=== PATIENT | female | born 1995 | race African-American/Black ===

== ENCOUNTER → 2016-08-08 | Outpatient (CLI) | payer OTHER ==
[~2016-08-08] MED LIST: AMOX875T PO; LEVO25TA5 PO
--- NOTE | 2016-08-08 16:01 | DIAGNOSTIC IMAGING REPORT ---
THYROID ULTRASOUND HISTORY: Thyroid nodule Z80.8 COMPARISON: None. FINDINGS: Right lobe: Maximum dimension 4.7 cm. Several 2 mm or last hypoechoic nodules lower aspect right thyroid. Left lobe: Uniform in appearance with a maximum dimension of 5.0 cm. Isthmus: No nodules. IMPRESSION: Several very tiny low suspicion right thyroid nodules. Otherwise negative study. A 1 year follow-up is suggested. Electronically signed by: Brett Jewell M.D. 08/08/2016 3:59 PM Dictated Date/Time: 08/08/2016 3:58 PM
== END | disposition home or self-care (01) ==
LOC: C.ULTR 15:38
PROVIDERS: ATTEND Family Medicine
DX: E04.1 Nontoxic single thyroid nodule (principal); Z80.8 Family history of malignant neoplasm of other organs or systems

== ENCOUNTER 2016-09-06 19:33 | Emergency (ER) | payer OTHER ==
[~2016-09-06] VITALS: Ht 175.3 cm; Wt 85.7 kg
[2016-09-06 19:42] VITALS: Ht 175.3 cm; Wt 85.7 kg
[2016-09-06 20:10] LABS: BASO % 0.3 %; BASO ABS # 0.02 K/uL (0-0.2); COMPLETE YES; EOS % 5.5 %; HEMATOCRIT 38.5 % (37-47); LYMPH % 43.6 %; LYMPH ABS # 2.56 K/uL (1.2-3.4); MEAN CELL VOLUME 88.5 fL (80-100); MEAN CORPUSCULAR HEMOGLOBIN 29.4 pg (25-34); MEAN CORPUSCULAR HGB CONC 33.2 g/dl (32-36); MEAN PLATELET VOLUME 9.9 fL (7.4-10.4); MONO % 7.7 %; NEUT % 42.9 %; PLATELET COUNT 266 K/uL (130-400); RED BLOOD COUNT 4.35 M/uL (4.2-5.4); WHITE BLOOD COUNT 5.87 K/uL (4.8-10.8)
[2016-09-06] MEDS ORDERED: LEVO25TA5 PO (20:20)
[2016-09-06 20:24] LABS: URINE APPEARANCE CLEAR (CLEAR); URINE BILIRUBIN NEG (NEG); URINE COLOR YELLOW; URINE EPITHELIAL CELL AUTO 20-30 /lpf (0-5); URINE NITRITE NEG (NEG); URINE PH 5.5 (4.5-7.5); UROBILINOGEN NEG (NEG); ZZUR CULT IF INDIC CLEAN CATCH NO
[2016-09-06 20:27] LABS: MANUAL MICROSCOPIC REQUIRED? NO; REVIEW REQ? NO
[2016-09-06 20:29] LABS: ALT/SGPT 16 U/L (12-78); AST/SGOT 12 U/L (15-37); BLOOD UREA NITROGEN 18 mg/dl (7-18); BUN/CREATININE RATIO 19.7 (10-20); CARBON DIOXIDE 25 mmol/L (21-32); CHLORIDE 107 mmol/L (98-107); CREATININE 0.92 mg/dl (0.60-1.20); GLUCOSE 58 mg/dl (70-99); POTASSIUM 3.8 mmol/L (3.5-5.1); SODIUM 141 mmol/L (136-145)
[2016-09-06] MEDS ORDERED: OPTIRAY 320 IV PRN (20:30)
[2016-09-06 20:32] LABS: ALKALINE PHOSPHATASE 47 U/L (45-117)
--- NOTE | 2016-09-06 21:02 | DIAGNOSTIC IMAGING REPORT ---
CT ABD/PELVIS IV CONTRAST ONLY CLINICAL HISTORY: Right lower quadrant abdominal pain COMPARISON STUDY: None. TECHNIQUE: Following the IV administration of 119 mL of Optiray-320, CT scan of the abdomen and pelvis was performed from the lung bases to the proximal femurs. Images are reviewed in the axial, sagittal, and coronal planes. IV contrast was administered without complication. CT DOSE: 522.79 mGy.cm FINDINGS: Lower chest: The heart is normal in size and configuration, without pericardial effusion. The lung bases and pleural spaces are clear. Liver: The contrast-enhanced liver is normal in size, contour, and attenuation. There is no intrahepatic biliary ductal dilatation. The hepatic veins and portal veins are patent. Gallbladder: Unremarkable. Spleen: Normal in size and attenuation. Pancreas: Unremarkable. Adrenal glands: Unremarkable. Kidneys: There is symmetric renal cortical enhancement. The kidneys are normal in size without hydronephrosis. Bowel: There are no transition zones indicate bowel obstruction. There is no evidence of acute diverticulitis. There is mild fecal retention. There is moderate to the stomach. There is borderline appendiceal thickening (7 mm) without evidence of significant periappendiceal inflammatory change. Peritoneum: There is a small area free pelvic fluid. No free air is visualized. Vasculature: The abdominal aorta is normal in course and caliber. Adenopathy: None. Pelvic viscera: The bladder, and pelvic viscera are unremarkable. Skeletal structures: No destructive osseous lesions are seen. IMPRESSION: 1. No evidence of bowel obstruction. No evidence of free air 2. Mild fecal retention 3. Small amount of free pelvic fluid 4. Borderline appendiceal wall thickening ((7 mm) without evidence of significant periappendiceal inflammatory change. The findings could represent a normal variant, or an early acute appendicitis. Clinical correlation and close follow-up will be necessary. Electronically signed by: Trenton Mobley M.D. 09/06/2016 9:01 PM Dictated Date/Time: 09/06/2016 8:53 PM
[2016-09-06] MEDS ORDERED: AMOXICILLIN/CLAVULANATE TAB 875 MG TAB PO ONE (21:45)
[2016-09-06] MEDS ORDERED: AMOX875T PO (21:55)
[2016-09-06 21:57] VITALS: BP 113/59; PULSE 77; TEMP 36.9; O2SAT 100
--- NOTE | 2016-09-07 00:59 | EMERGENCY ROOM VISIT NOTE ---
History Report prepared by [place]: Lamin Waddell Under the Supervision of: Dr. Peter Farrell D.O. First contact with patient: 20:00 Chief Complaint: ABDOMINAL PAIN Stated Complaint: STOMACH PAINS ON MIDDLE/R SIDE,WORSENS AFTER EATIN Nursing Triage Summary: pt reports for last 2 or 3 days abdominal pain RLQ , with nausea worse after eating History of Present Illness The patient is a 21 year old female who presents to the Emergency Room with complaints of constant right lower quadrant abdominal pain beginning a few days ago. She currently rates her discomfort a 7/10 in severity. The patient states that she has had similar symptoms last summer in the [facility], but she thought it was something she ate. She reports that laying on her stomach and eating worsens her discomfort. The patient states that she tried taking Advil, but it did not help her discomfort. She denies vomiting, changing in urinary symptoms, cough, runny nose, shortness of breath, and calf swelling. The patient notes that her LNMP was about three weeks ago and is one week away from her next. She denies any vagina discharge or change in her menstrual cycle. The patient states that she was just diagnosed with hyperthyroidism. Source of History: patient Onset: few days ago Position: abdomen (RLQ) Symptom Intensity: 7/10 Timing: constant Modifying Factors (Worsening): eating, other (laying on it) Associated Symptoms: No cough, No SOB, No vomiting, No urinary symptoms Note: She denies runny nose and calf swelling. Review of Systems See HPI for pertinent positives & negatives. A total of 10 systems reviewed and were otherwise negative. Past Medical & Surgical Medical Problems: (1) Hypothyroidism Family History Diabetes mellitus FH: cancer Hypertension Social History Smoking Status: Never Smoker Alcohol Use: occasionally Housing Status: lives with family Occupation Status: [employer] student Current/Historical Medications Scheduled Amoxicillin & Pot Clavulanate (Augmentin 875-125 mg), 875 MG PO BID Levothyroxine Sodium (Levothyroxine Sodium), Unknown Dose PO DAILYBB Allergies Coded Allergies: No Known Allergies (Verified , 09/06/16) Physical Exam Vital Signs Date Time Temp Pulse Resp B/P (MAP) Pulse Ox O2 Delivery O2 Flow Rate FiO2 09/06/16 21:57 36.9 77 16 113/59 100 09/06/16 21:28 77 16 113/59 100 Room Air 09/06/16 19:42 36.9 88 18 125/79 99 Room Air Physical Exam GENERAL: alert, well appearing, well nourished, no distress, non-toxic, sitting up in bed EYE EXAM: normal conjunctiva OROPHARYNX: no exudate, no erythema, lips, buccal mucosa, and tongue normal and mucous membranes are moist NECK: supple, no nuchal rigidity, no adenopathy, non-tender LUNGS: Clear to auscultation. Normal chest wall mechanics HEART: no murmurs, S1 normal and S2 normal ABDOMEN: abdomen soft, slight tenderness to right lower quadrant, normo-active bowel sounds, no masses, no rebound or guarding. BACK: Back is symmetrical on inspection and there is no deformity, no midline tenderness, no CVA tenderness. SKIN: no rashes and no bruising UPPER EXTREMITIES: upper extremities are grossly normal. LOWER EXTREMITIES: No pitting edema. NEURO EXAM: Normal sensorium, cranial nerves II-XII intact, normal speech, no weakness of arms, no weakness of legs. Medical Decision & Procedures ER Provider Diagnostic Interpretation: CT:Per my review, radiologist interpretation. CT ABD/PELVIS IV CONTRAST ONLY CLINICAL HISTORY: Right lower quadrant abdominal pain COMPARISON STUDY: None. TECHNIQUE: Following the IV administration of 119 mL of Optiray-320, CT scan of the abdomen and pelvis was performed from the lung bases to the proximal femurs. Images are reviewed in the axial, sagittal, and coronal planes. IV contrast was administered without complication. CT DOSE: 522.79 mGy.cm FINDINGS: Lower chest: The heart is normal in size and configuration, without pericardial effusion. The lung bases and pleural spaces are clear. Liver: The contrast-enhanced liver is normal in size, contour, and attenuation. There is no intrahepatic biliary ductal dilatation. The hepatic veins and portal veins are patent. Gallbladder: Unremarkable. Spleen: Normal in size and attenuation. Pancreas: Unremarkable. Adrenal glands: Unremarkable. Kidneys: There is symmetric renal cortical enhancement. The kidneys are normal in size without hydronephrosis. Bowel: There are no transition zones indicate bowel obstruction. There is no evidence of acute diverticulitis. There is mild fecal retention. There is moderate to the stomach. There is borderline appendiceal thickening (7 mm) without evidence of significant periappendiceal inflammatory change. Peritoneum: There is a small area free pelvic fluid. No free air is visualized. Vasculature: The abdominal aorta is normal in course and caliber. Adenopathy: None. Pelvic viscera: The bladder, and pelvic viscera are unremarkable. Skeletal structures: No destructive osseous lesions are seen. IMPRESSION: 1. No evidence of bowel obstruction. No evidence of free air 2. Mild fecal retention 3. Small amount of free pelvic fluid 4. Borderline appendiceal wall thickening ((7 mm) without evidence of significant periappendiceal inflammatory change. The findings could represent a normal variant, or an early acute appendicitis. Clinical correlation and close follow-up will be necessary. Electronically signed by: Trenton Mobley M.D. 09/06/2016 9:01 PM Dictated Date/Time: 09/06/2016 8:53 PM Laboratory Results 09/06/16 19:55 Red Blood Count 4.35, Mean Corpuscular Volume 88.5, Mean Corpuscular Hemoglobin 29.4, Mean Corpuscular Hemoglobin Concent 33.2, Mean Platelet Volume 9.9, Neutrophils (%) (Auto) 42.9, Lymphocytes (%) (Auto) 43.6, Monocytes (%) (Auto) 7.7, Eosinophils (%) (Auto) 5.5, Basophils (%) (Auto) 0.3, Neutrophils # (Auto) 2.52, Lymphocytes # (Auto) 2.56, Monocytes # (Auto) 0.45, Eosinophils # (Auto) 0.32, Basophils # (Auto) 0.02 09/06/16 19:55 Test 09/06/16 19:47 09/06/16 19:55 Urine Color YELLOW Urine Appearance CLEAR (CLEAR) Urine pH 5.5 (4.5-7.5) Urine Specific [place] 1.020 (1.000-1.030) Urine Protein NEG (NEG) Urine Glucose (UA) NEG (NEG) Urine Ketones NEG (NEG) Urine Occult Blood NEG (NEG) Urine Nitrite NEG (NEG) Urine Bilirubin NEG (NEG) Urine Urobilinogen NEG (NEG) Urine Leukocyte Esterase SMALL (NEG) Urine WBC (Auto) 1-5 /hpf (0-5) Urine RBC (Auto) 0-4 /hpf (0-4) Urine Hyaline Casts (Auto) 1-5 /lpf (0-5) Urine Epithelial Cells (Auto) 20-30 /lpf (0-5) Urine Bacteria (Auto) NEG (NEG) Urine Test NEG (NEG) White Blood Count 5.87 K/uL (4.8-10.8) Red Blood Count 4.35 M/uL (4.2-5.4) Hemoglobin 12.8 g/dL (12.0-16.0) Hematocrit 38.5 % (37-47) Mean Corpuscular Volume 88.5 fL (80-100) Mean Corpuscular Hemoglobin 29.4 pg (25-34) Mean Corpuscular Hemoglobin Concent 33.2 g/dl (32-36) Platelet Count 266 K/uL (130-400) Mean Platelet Volume 9.9 fL (7.4-10.4) Neutrophils (%) (Auto) 42.9 % Lymphocytes (%) (Auto) 43.6 % Monocytes (%) (Auto) 7.7 % Eosinophils (%) (Auto) 5.5 % Basophils (%) (Auto) 0.3 % Neutrophils # (Auto) 2.52 K/uL (1.4-6.5) Lymphocytes # (Auto) 2.56 K/uL (1.2-3.4) Monocytes # (Auto) 0.45 K/uL (0.11-0.59) Eosinophils # (Auto) 0.32 K/uL (0-0.5) Basophils # (Auto) 0.02 K/uL (0-0.2) RDW Standard Deviation 40.4 fL (36.4-46.3) RDW Coefficient of Variation 12.5 % (11.5-14.5) Immature Granulocyte % (Auto) 0.0 % Immature Granulocyte # (Auto) 0.00 K/uL (0.00-0.02) Anion Gap 9.0 mmol/L (3-11) Est Creatinine Clear Calc Drug Dose 112.1 ml/min Estimated GFR () 102.4 Estimated GFR (Non- 88.4 BUN/Creatinine Ratio 19.7 (10-20) Calcium Level 9.0 mg/dl (8.5-10.1) Total Bilirubin 0.3 mg/dl (0.2-1) Direct Bilirubin < 0.1 mg/dl (0-0.2) Aspartate Amino Transf (AST/SGOT) 12 U/L (15-37) Alanine Aminotransferase (ALT/SGPT) 16 U/L (12-78) Alkaline Phosphatase 47 U/L (45-117) Total Protein 8.4 gm/dl (6.4-8.2) Albumin 4.4 gm/dl (3.4-5.0) Lipase 162 U/L (73-393) Laboratory results per my review. Medications Administered Medications (Trade) Dose Ordered Sig/Noreen Route Start Time Stop Time Status Last Admin Dose Admin Amoxicillin/ Clavulanate Potassium (Augmentin Tab) 875 mg NOW ONCE PO 09/06/16 21:45 09/06/16 21:46 DC 09/06/16 22:02 875 MG ED Course ED COURSE: Vital signs were reviewed and showed normal signs The patients medical record was reviewed The above diagnostic studies were performed and reviewed. ED treatments and interventions as stated above. 2016: The patient was evaluated in room B12B. A complete history and physical examination was performed. 2124: I spoke with Dr. Torrez, general surgery. He recommends antibiotics and having the patient follow up in the office. 2141: Upon reevaluation, the patient is resting. I discussed my findings with the patient and she understands and agrees with the treatment plan. She denied a pelvic exam. 2144: Ordered Augmentin Tab 875 mg PO. Based on the patients age, coexisting illnesses, exam and lab findings the decision to treat as an outpatient was made. The patient remained stable while under my care. The patient appeared well at the time of discharge. Medical Decision Differential diagnoses includes but is not limited to gastritis, peptic ulcer disease, GERD, gallbladder disease, pancreatitis, small bowel obstruction, acute coronary syndrome, pericarditis, ischemic bowel, irritable bowel disease, irritable bowel syndrome, appendicitis, diverticulitis, malignancy, hernia, urinary tract infection, torsion, /ectopic , perforation, trauma, infectious. Medication Reconciliation: I attest that I have personally reviewed the patient' s current medication list. Patient is a 21-year-old female who presents the ER for 2 days worth of right lower quadrant abdominal pain which is worse after eating. On exam she is no right upper quadrant abdominal pain. CBC along with BMP, LFTs, bilirubin and lipase were normal. There was no leukocytosis. UA was negative. was negative. CT shows a appendix measuring 7 mm with no significant stranding. This was discussed with Dr. Pierre. He recommended antibiotics and having the patient follow-up as she had no significant leukocytosis and a CT did not showed no significant surrounding inflammation. She was tender I do believe that this likely early appendicitis. She was agreeable with outpatient treatment. She'll return tomorrow if she has any worsening of pain, fevers, persistent nausea vomiting. If the pain improves or resolve she'll follow-up on Friday with her PCP and Gen. surgery. She was discharged on Augmentin per general surgery. Vitals are stable and she is afebrile. Discussed with Pt concerning signs and symptoms to watch out for. Pt was instructed to follow up with their PCP and discussed with the patient their option to return to the ED at anytime for persistent or worsening symptoms. The appropriate anticipatory guidance and out-patient management, including indications for return to the emergency department, were explained at length to the patient and understood. Consults Time Called: 2122 Consulting Physician: Dr. Torrez, General Surgery Returned Call: [address] Torrez, general surgery. He recommends antibiotics and having the patient follow up in the office. Impression Primary Impression: Acute appendicitis Scribe Attestation The scribe's documentation has been prepared under my direction and personally reviewed by me in its entirety. I confirm that the note above accurately reflects all work, treatment, procedures, and medical decision making performed by me. Departure Information Dispostion Home / Self-Care Prescriptions Amoxicillin & Pot Clavulanate (Augmentin 875-125 mg) 1 Tab Tab 875 MG PO BID for 10 Days, TAB Prov: Peter Farrell, 09/06/16 Referrals Darrius Woodson III, M.D. (PCP) Mac Torrez M.D. Forms HOME CARE DOCUMENTATION FORM, IMPORTANT VISIT INFORMATION Patient Instructions Appendicitis, My [facility] Additional Instructions CT of her abdomen and pelvis shows an enlarged appendix suggesting acute appendicitis. This was discussed with general surgery and they recommended antibiotics. If you still have pain in 24 hours or any worsening of your pain you need to return immediately to the ER for reevaluation immediately. If your pain resolves please follow up with your primary care doctor on Friday and Gen. surgery early next week. Again any fevers, worsening pain, nausea or vomiting, unable to eat or drink, or any other concerning signs or symptoms please return to the ER immediately. Problem Qualifiers Primary Impression: Acute appendicitis Acute appendicitis type: unspecified acute appendicitis type Qualified Codes : K35.80 - Unspecified acute appendicitis
== END 2016-09-06 22:06 | disposition home or self-care (01) ==
LOC: C.EDB 19:36
DX: K35.80 Unspecified acute appendicitis (principal); E03.9 Hypothyroidism, unspecified; Z79.899 Other long term (current) drug therapy; Z83.3 Family history of diabetes mellitus; Z82.49 Family history of ischemic heart disease and other diseases of the circulatory system

== ENCOUNTER 2017-07-15 21:38 | Emergency (ER) | payer OTHER ==
[~2017-07-15] VITALS: Ht 175.3 cm; Wt 83.5 kg
[~2017-07-15 21:38] MED LIST changes: -AMOX875T PO
[2017-07-15 21:42] VITALS: Ht 175.3 cm; Wt 83.5 kg
[2017-07-15] MEDS ORDERED: ACETAMINOPHEN 500 MG TAB PO STA (22:03)
[2017-07-15 23:06] VITALS: TEMP 36.9
[2017-07-15 23:08] VITALS: BP 113/75; PULSE 86; O2SAT 97
--- NOTE | 2017-07-16 02:14 | EMERGENCY ROOM VISIT NOTE ---
ED Visit Note First contact with patient: 21:48 Chief Complaint: Sore throat. History of Present Illness: Ms. Jovel is a 22-year-old black female who ambulates into the ED complaining of throat pain. Patient reports she has been feeling well over the last few days and noted some mild nasal/sinus congestion yesterday. Patient reports she awoke from sleep at approximately 9 AM this morning and at that time she had a fever of 102.2F, body aches, mild headache, and a scratchy throat. Throughout the day she has been having chills and sweats and a gradual increase in her throat discomfort. Currently she describes her pain as a dull sharp sensation. She rates her discomfort 8/10. Her pain is nonradiating. Her pain worsens with swallowing. She has not identified any alleviating factors related to the pain. Associated with her pain she continues to have fevers, body aches and chills. She reports over the day she has a sensation of throat swelling and has had a nonproductive cough. She also reports that she has a mild headache. She describes this as a global pressure sensation. She rates her discomfort 1/10. She has not identified any aggravating or alleviating factors related to her pain. She has been taking ibuprofen without relief of her discomfort. She denies dizziness, lightheadedness, hearing changes, ear drainage, inability to swallow, painful talking, drooling, voice changes, neck pain/stiffness, shortness of breath, nausea, vomiting. Review of Systems: As noted above in history of present illness. 8 body systems were reviewed and found to be negative as noted above. Past Medical History: Hypothyroidism, status post wisdom teeth extraction and I& D procedure on a unspecified eye stye. Current Medications: Levothyroxine. Allergies to Medications: Patient denies. Social History: Patient is currently employed; she feels safe in her home environment; she denies tobacco use and admits to social alcohol use. Physical Examination: Vital Signs: Date Time Temp Pulse Resp B/P (MAP) Pulse Ox O2 Delivery O2 Flow Rate FiO2 07/15/17 23:08 86 18 113/75 97 07/15/17 23:06 36.9 86 18 113/75 97 Room Air 07/15/17 21:42 38.0 104 20 98 Room Air GENERAL: 22-year-old female in mild to moderate distress due to symptoms, nontoxic-appearing, febrile and hemodynamically stable. NEUROLOGICAL: Awake, alert and oriented to person, place and time. Answering questions appropriately and following commands. Normal gait. Good hand eye coordination. SKIN: Warm, dry and pink. No soft tissue eruptions or trauma noted. HEENT: Atraumatic and normocephalic. No erythema or tenderness over the frontal or maxillary sinuses. External ears are nontender. Auditory canals are pink and patent. Tympanic membranes were not erythematous or edematous. Mild tenderness in the right posterior auricular area without elevation of the lymph node or tenderness or erythema over the mastoid processes. PERRLA. Sclera white and conjunctiva pink without drainage. No drainage from naris with audible congestion. Oral cavity moist and pink. Airway is patent. Uvula is midline and no abscesses were seen. Moderate posterior erythema and mild edema was noted. No tonsillar exudates. Speech normal and clear. Mild bilateral cervical lymphadenopathy. Trachea midline. BACK: No tenderness over the bony spine. No nuchal rigidity or meningismus. Full range of motion of the cervical spine. THORAX: Lungs sounds are clear to auscultation and equal bilaterally with symmetrical chest wall. No wheezing, rales or rhonchi. ED Course: Patient is assessed as noted above. Patient's medication list was reviewed. Rapid Strep Screen: Negative. Culture pending. Patient was given 1 g of acetaminophen by mouth for pain and fever. Patient was educated about today's findings and instructed on her treatment plan ; she verbalized understanding and agreement with this plan. Clinical Impression: Acute pharyngitis. Disposition: Patient discharged home in stable condition; prior to departure she was reassessed and subjectively reported she was feeling better and rated her throat discomfort 1/10. Additionally her temperature was rechecked with a temperature of 36.9C orally and now she was afebrile. Plan: Patient was encouraged alternate ibuprofen and acetaminophen every 3 hours as needed for persistent pain or fevers. Patient was encouraged to stay well-hydrated with increased clear fluids. Patient was encouraged to consider gargling with salt water 5 times a day. Patient was encouraged to follow-up with primary care provider for recheck in 4- 5 days. Patient was encouraged return the ED for worsening pain, worsening fevers, inability to swallow, painful talking, drooling, severe headaches, vomiting or any new/concerning symptoms.
== END 2017-07-15 23:09 | disposition home or self-care (01) ==
LOC: C.EDB 21:40
DX: J02.9 Acute pharyngitis, unspecified (principal); E03.9 Hypothyroidism, unspecified; Z79.899 Other long term (current) drug therapy